=== PATIENT | male | born 2000 | race Caucasian/White ===

== ENCOUNTER 2020-06-09 13:32 | Emergency (ER) | payer OTHER ==
[~2020-06-09] VITALS: Ht 182.9 cm; Wt 95.3 kg
[2020-06-09 13:43] VITALS: Ht 182.9 cm; Wt 95.3 kg
[2020-06-09 14:20] LABS: BASOPHIL % 0.3 % (0.2-1.5); PLATELET COUNT 232 x10^3mcL (152-348); RED CELL DISTRIBUTION WIDTH 12.5 % (12.1-16.2)
[2020-06-09 14:58] LABS: ALBUMIN 4.1 g/dL (3.4-5.0); ALKALINE PHOSPHATASE 70 U/L (46-116); ALT/SGPT 28 U/L (16-63); AST/SGOT 13 U/L (15-37); BILIRUBIN TOTAL 0.65 mg/dL (0.20-1.00); CARBON DIOXIDE 25.6 mmol/L (21-32); CHLORIDE SERUM 97 mmol/L (98-107); GFR1 > 60 mL/min; GLUCOSE SERUM 106 mg/dL (74-106); LIPASE 68 IU/L (73-393); POTASSIUM SERUM 3.5 mmol/L (3.5-5.1); SODIUM SERUM 132 mmol/L (136-145); TOTAL PROTEIN, SERUM 8.2 g/dL (6.4-8.2)
[2020-06-09 15:40] VITALS: BP 119/81
== END 2020-06-09 15:40 | disposition home or self-care (01) ==
LOC: ED 13:32
PROVIDERS: Student in an Organized Health Care Education/Training Program
DX: K29.70 Gastritis, unspecified, without bleeding (principal)
CPT/HCPCS: Q0162